=== PATIENT | female | born 1955 | race Caucasian/White ===

== ENCOUNTER 2020-10-26 10:19 | Day surgery (SDC) | payer MEDICARE, BC ==
[2020-10-25 12:44] LABS: ALBUMIN 3.6 G/DL (3.4-5.0); ANION GAP 6 (8-16); BLOOD UREA NITROGEN 5 MG/DL (7-18); BUN/CREATININE RATIO 7.2 (6.6-38.0); CALCIUM 8.5 MG/DL (8.5-10.1); CHLORIDE 98 MMOL/L (99-107); CREATININE 0.69 MG/DL (0.40-0.90); GLUCOSE 97 MG/DL (70-104); POTASSIUM 4.3 MMOL/L (3.5-5.1); SODIUM 138 MMOL/L (135-145); TOTAL CARBON DIOXIDE 33.9 MMOL/L (24-32); eGFR 85 ML/MIN
[2020-10-25 12:49] LABS: PARTIAL THROMBOPLASTIN TIME 24 SECONDS (22-32)
[2020-10-25 13:39] LABS: HEMATOCRIT 43.6 % (35.0-45.0); HEMOGLOBIN 14.7 g/dl (12.0-16.0); MEAN CORPUSCULAR HEMOGLOBIN 35.9 PG (27.0-31.0); MEAN CORPUSCULAR HGB CONC 33.8 g/dL (33.0-36.5); MEAN CORPUSCULAR VOLUME 106.2 FL (78-98); MEAN PLATELET VOLUME 7.1 FL (7.4-10.4); PLATELET COUNT 376 X10'3 (140-440); RED CELL DISTRIBUTION WIDTH 13.4 % (11.5-14.5); WHITE BLOOD COUNT 6.6 X10'3 (4.5-11.0)
[2020-10-25 13:43] LABS: PLATELET ESTIMATE NORMAL; TOTAL CELLS COUNTED 100
[~2020-10-26] VITALS: Ht 167.6 cm; Wt 70.1 kg
[2020-10-26] MEDS ORDERED: normal saline 1,000 ML IV SCH ×2 (10:40→14:55)
[2020-10-26] MEDS ORDERED: LORazepam 0.5 MG tablet PO PRN (10:40)
[2020-10-26] MEDS ORDERED: diphenhydrAMINE 25mg capsule PO PRN (10:40)
[2020-10-26] MEDS ORDERED: OMEG1CAP61 PO (11:30)
[2020-10-26] MEDS ORDERED: METO100T14 PO (11:30)
[2020-10-26] MEDS ORDERED: FOLI0.4T14 PO (11:30)
[2020-10-26] MEDS ORDERED: EZET10TA6 PO (11:30)
[2020-10-26] MEDS ORDERED: AMLO5TAB4 PO (11:30)
[2020-10-26] MEDS ORDERED: ATOR40TA PO (11:30)
[2020-10-26] MEDS ORDERED: OMEP40CA21 PO (11:30)
[2020-10-26] MEDS ORDERED: PSYL0.4C2 PO (11:30)
[2020-10-26] MEDS ORDERED: MULT-1085 PO (11:30)
[2020-10-26] MEDS ORDERED: ASPI81TA52 PO (11:30)
[2020-10-26] MEDS ORDERED: LOSA1TAB41 PO (11:30)
[2020-10-26] MEDS ORDERED: MONT10TA32 PO (11:30)
[2020-10-26] MEDS ORDERED: FLUT1BLS9 INH (11:30)
[2020-10-26] MEDS ORDERED: LIDOcaine/PRILOcaine 5gm cream TP ONE (11:35)
[2020-10-26] MEDS ORDERED: iohexol 350 MG/ML 50ML vial IV ONE (12:12)
[2020-10-26] MEDS ORDERED: midazolam 1 mg/ML 2ml injection ONE (12:12)
[2020-10-26] MEDS ORDERED: verapamil 2.5 mg/ml inj IV ONE (12:12)
[2020-10-26] MEDS ORDERED: fentaNYL/PF 50MCG/1 ML 2ML syringe ONE (12:12)
[2020-10-26] MEDS ORDERED: LIDOcaine 1% (10mg/ml)w/preservative injection 20ml MDV ONE (12:12)
[2020-10-26] MEDS ORDERED: heparin 1,000unit/ml 10ml vial 10 ML ONE (12:12)
[2020-10-26] MEDS ORDERED: iohexol 350MG/ML 100ml bottle IV ONE (12:12)
[2020-10-26] MEDS ORDERED: nitroGLYCERIN-Tridil 50MG/D5W 250 ML IV ONE (12:12)
[2020-10-26 14:17] LABS: ISTAT HGB ART 13.9 g/dl (12.0-16.0); ISTAT Hct ART 41 %PCV (35-48); ISTAT O2 SATURATION ARTERIAL 94 % (95-98); ISTAT SOURCE ART
[2020-10-26] MEDS ORDERED: hydrocortisone 1% OINTMENT 30gm tube TP SCH (14:54)
[2020-10-26] MEDS ORDERED: HYDROcodone/acetaminophen 5mg/325mg tablet PO PRN (14:55)
[2020-10-26] MEDS ORDERED: HYDROcodone/acetaminophen 10/325mg tab PO PRN (14:55)
[2020-10-26 14:59] LABS: ISTAT Hct MIX 41 %PCV (35-48); ISTAT O2 SATURATION MIX VENOUS 75 % (60-80); ISTAT SOURCE VEN
[2020-10-26 15:15] VITALS: BP 152/96
[2020-10-26 15:30] VITALS: BP 141/72
[2020-10-26 15:45] VITALS: BP 151/72
[2020-10-26 16:15] VITALS: BP 130/71
[2020-10-26 16:45] VITALS: BP 132/68
[2020-10-26 17:45] VITALS: BP 152/70
== END 2020-10-26 18:50 | disposition home or self-care (01) ==
LOC: SSTAY O 10:19
PROVIDERS: ATTEND Internal Medicine Cardiovascular Disease
DX: R94.39 Abnormal result of other cardiovascular function study (principal); I25.10 Atherosclerotic heart disease of native coronary artery without angina pectoris; I10 Essential (primary) hypertension; E78.5 Hyperlipidemia, unspecified; J44.9 Chronic obstructive pulmonary disease, unspecified; I34.1 Nonrheumatic mitral (valve) prolapse; G47.33 Obstructive sleep apnea (adult) (pediatric); G89.29 Other chronic pain; M19.90 Unspecified osteoarthritis, unspecified site; M54.30 Sciatica, unspecified side; M85.80 Other specified disorders of bone density and structure, unspecified site; K21.9 Gastro-esophageal reflux disease without esophagitis; I47.1 Supraventricular tachycardia; E66.3 Overweight; Z68.26 Body mass index [BMI] 26.0-26.9, adult; F17.210 Nicotine dependence, cigarettes, uncomplicated; Z79.899 Other long term (current) drug therapy; Z79.82 Long term (current) use of aspirin; Z90.710 Acquired absence of both cervix and uterus; Z98.890 Other specified postprocedural states; Z79.01 Long term (current) use of anticoagulants
CPT/HCPCS: 36415; 76937; 80048; 82803; 85014; 85025; 85610; 85730; 93005; 93460; 99152; 99153; C1769; C1894; J1644; J2001; J2250; J3010; J7030; Q0163; Q9967; 85007; A5120; A6258; C1751; J3490

== ENCOUNTER 2024-07-27 20:09 | Inpatient (IN) | payer MEDICARE, BC ==
[~2024-07-27] VITALS: Ht 165.1 cm; Wt 69.0 kg
[~2024-07-27 20:09] MED LIST: AMLO5TAB4 PO; ASPI81TA52 PO; ATOR40TA PO; EZET10TA6 PO; FLUT1BLS9 INH; FOLI0.4T14 PO; LOSA1TAB41 PO; METO100T14 PO; MONT-40 PO; MULT-1085 PO; OMEG1CAP61 PO; OMEP40CA21 PO; PSYL0.4C2 PO
[2024-07-27] MEDS ORDERED: iohexol 350MG/ML 100ml bottle IV ONE (20:23)
--- NOTE | 2024-07-27 20:34 | Physician Documentation ---
History of Present Illness ~ Chief Complaint: Stroke Alert Stated Complaint: STROKE SYMPTOMS Time Seen by MD: 20:32 Source: patient, family Mode of Arrival: POV Exam Limitations: no limitations HPI Chief Complaint: Visual changes, difficulty speaking Caveat: None Independent Historians: and daughter History of Present Illness: Patient is a 69-year-old woman with a last known well time of the proximally 7:00 p.m.. Family was watching we will fortunate on TV when family noticed that she was not talking and they had taken her outside and she was unable to understand what her daughter was saying to her and was having difficulty speaking. Patient also had visual changes and noticed that she could not see the words or had problems seen her entire visual field. Patient has had similar symptoms secondary to migraines that usually resolves when she takes a medication for her migraines. Patient has had a headache that has been on and off for two weeks. Family states that her blood pressure has been running very high. Review of systems: All systems were reviewed and are negative except for what is indicated in the history of present illness. Past Medical History: Migraines HTN, HLD Past Surgical History: Noncontributory Social History: , tobacco use, denies drug use Medications: Reviewed as documented Nursing Notes Allergies: Reviewed as documented in Nursing Notes Medication Reconciliation Allergies: Coded Allergies: No Known Allergies (Unverified , 10/26/20) Scheduled Aspirin (Aspirin EC), 1 TAB PO DAILY, (Reported) Atorvastatin Calcium* (Lipitor*), 1 TAB PO DAILY, (Reported) Ezetimibe (Zetia), 1 TAB PO DAILY, (Reported) Fluticasone Propion/Salmeterol (Wixela 100-50 Inhub), 1 PUFF INH BID, (Reported) Folic Acid (FOLIC ACID tablet), 1 MG PO DAILY, (Reported) Metoprolol Tartrate (Metoprolol Tartrate), 1 TAB PO Q12H, (Reported) Montelukast Sodium (Montelukast Sodium), 1 TAB PO DAILY, (Reported) Multivitamin (Multi Vitamin Daily), 1 TAB PO DAILY, (Reported) [place]-3 Acid Ethyl Esters (Lovaza), 1 CAP PO DAILY, (Reported) Omeprazole (Prilosec), 1 CAP PO DAILY, (Reported) Psyllium Husk (Metamucil), 2 CAP PO DAILY, (Reported) Discontinued Medications Amlodipine Besylate (Norvasc), 1 TAB PO DAILY, (Reported) Discontinued Reason: patient no longer taking Losartan/Hydrochlorothiazide (Losartan-Hctz 100-12.5 Mg Tab), 1 TAB PO DAILY, (Reported) Discontinued Reason: completed med therapy Review of Systems All Other Systems at this time: Reviewed and Negative ROS Patient denies any other acute symptoms other than above. All other systems are negative Physical Exam Vital Signs: Temperature: 97.4, Source: Temporal, Heart Rate: 60, Respiratory Rate: 18, BP: 210/91, Pulse Oximetry: 100, Weight: 69.000 Oxygen Flow Rate: 0 Pulse Oximetry Reflects: adequate oxygenation General Appearance General Appearance: No distress HEENT: Normal OP, moist oral mucosa, PERRL, EOMI Neck: supple, normal ROM, trachea midline Pulmonary: No respiratory distress, CTA, BS equal Cardiac: RRR, no murmur, rub or gallop, GI: nondistended, soft, nontender, normal bowel sounds, no guarding, no rebound Extremities: normal ROM, no swelling, non-tender Skin: intact, dry, warm, no rashes Neuro: AAOx3, speech is clear, no focal motor weakness, cranial nerves 2-12 grossly intact, [id number] intact bilaterally, no pronator drift, equal medical language specialist, patient able to lift each leg off the stretcher against gravity. No slurred speech. Patient is able to name objects. No evidence of an expressive or receptive aphasia. No visual field deficits Psych: normal affect, good eye contact, no apparent hallucination, normal speech Progress Results/Orders Results/Orders Orders - BASILIA HERCULES MD Monitor (07/27/24 20:22) 2 Large Bore Ivs (07/27/24 20:22) Chest,Single View (07/27/24 20:54) Accucheck (07/27/24 20:22) Ct Stroke Alert (07/27/24 20:30) Cta Neck/Head (07/27/24 20:30) [place] Prov.Neuro Consult (07/27/24 20:36) Page Hospitalist (07/27/24 22:04) Fill Out Med Reconciliation (07/27/24 22:04) Completed Orders - BASILIA HERCULES MD Cbc/Diff (07/27/24 20:22) Electrocardiogram (07/27/24 20:22) Chest,Single View (07/27/24 20:54) Ct Stroke Alert (07/27/24 20:30) PTT (07/27/24 20:22) Pt Inr (07/27/24 20:22) Cta Neck/Head (07/27/24 20:30) CMP (07/27/24 20:28) Hgb A1c (07/27/24 20:28) Medications Received in ER Medications (Trade) Dose Ordered Sig/Cathy Route PRN Reason Start Time Stop Time Status Last Admin Dose Admin Sodium Chloride 1,000 ml @ 100 mls/hr Q10H IV 07/27/24 22:15 07/27/24 23:36 100 MLS/HR (aspirin 325mg tablet) 1 tab ONCE ONCE PO 07/27/24 22:15 07/27/24 22:31 DC 07/27/24 22:52 1 TAB Vital Signs 07/27/24 07/27/24 07/27/24 07/27/24 20:17 20:26 21:00 21:35 Temp 97.4 Pulse 89 60 73 73 Resp 16 18 17 17 B/P (MAP) 210/91 166/64 191/84 Pulse Ox 98 100 97 97 O2 Flow Rate 0 07/27/24 07/27/24 07/27/24 21:44 22:02 22:03 Pulse 73 72 Resp 16 21 B/P (MAP) 127/53 127/53 (77) Pulse Ox 94 97 100 O2 Delivery Nasal Cannula* O2 Flow Rate 3 FiO2 32 Laboratory Tests Test 07/27/24 20:16 07/27/24 20:28 07/27/24 21:26 07/27/24 21:28 Glucometer 133 H White Blood Count 7.4 Red Blood Count 5.36 Hemoglobin 15.6 Hematocrit 47.9 H Mean Corpuscular Volume 89.4 Mean Corpuscular Hemoglobin 29.2 Mean Corpuscular Hemoglobin Concent 32.6 L Red Cell Distribution Width 20.5 H Platelet Count 298 Mean Platelet Volume 7.2 L Neutrophils (%) (Auto) 55.9 Lymphocytes (%) (Auto) 30.1 Monocytes (%) (Auto) 10.5 Eosinophils (%) (Auto) 3.0 Basophils (%) (Auto) 0.5 Neutrophils # (Auto) 4.1 Lymphocytes # (Auto) 2.2 Monocytes # (Auto) 0.8 Eosinophils # (Auto) 0.2 Basophils # (Auto) 0.0 CBC Comment Platelet Estimate Normal Red Blood Cell Morphology Perf Basophilic Stippling Anisocytosis Few Prothrombin Time 10.9 INR International Normalized Ratio 1.1 Activated Partial Thromboplast Time 26 Coagulation Comments Sodium Level 133 L Potassium Level 4.9 Chloride Level 95 L Carbon Dioxide Level 31.7 Anion Gap 6 L Blood Urea Nitrogen 14 Creatinine 0.73 Estimated GFR/1.73 m2 79 BUN/Creatinine Ratio 19.2 Glucose Level 137 H Hemoglobin A1c 6.0 Lactic Acid Level 0.9 Calcium Level 9.2 Total Bilirubin 0.7 Aspartate Amino Transf (AST/SGOT) 50 H Alanine Aminotransferase (ALT/SGPT) 82 H Alkaline Phosphatase 101 Total Protein 7.7 Albumin 4.0 Globulin 3.7 Albumin/Globulin Ratio 1.1 Chemistry Comments Urine Specimen Description Cln catch midstream Urine Color Yellow Urine Clarity Clear Urine pH 6.0 Urine Specific [place] <=1.005 Urine Protein Negative Urine Glucose (UA) Negative Urine Ketones Negative Urine Occult Blood Negative Urine Nitrite Negative Urine Bilirubin Negative Urine Urobilinogen 0.2 Urine Leukocyte Esterase Trace H Urine RBC 0-2 Urine WBC 5-10 H Urine Squamous Epithelial Cells Few Urine Transitional Epithelial Cells Few Urine Bacteria 1+ Urine Hyaline Casts 0-3 Urine Culture Indicated Indicated Volume Urine Centrifuged 10 ml Urine Comment Urine Opiates Screen Negative Urine Methadone Screen Negative Urine Fentanyl Screen Negative Urine Barbiturates Screen Negative Urine Phencyclidine Screen Negative Urine Amphetamines Screen Negative Urine Benzodiazepines Screen Negative Urine Cocaine Screen Negative Urine Cannabinoids Screen Negative Drug Screen Comment Medical Decision Making Findings Differential diagnosis includes but is not limited to: Migraine, ischemic CVA, hemorrhagic CVA, uncontrolled hypertension, hypoglycemia, electrolyte abnormalities EKG independent interpretation: Performed at 9:11 p.m.. Normal sinus rhythm, heart rate 77, normal axis LVH Chest x-ray, single view, indication: Stroke alert Independent interpretation: Hyperinflation of lungs, flat hemidiaphragms consistent with COPD, lungs are clear, normal mediastinum, normal cardiac silhouette. No acute cardiopulmonary process. CTA of the head without IV contrast, indication: Stroke alert Impression: 1. No acute territorial infarct, intracranial hemorrhage, or mass effect. 2. Age-related involutional changes. Chronic microvascular changes. 3. If clinical symptoms persist, MRI is suggested in further evaluation. CTA of the head and neck, indication: Stroke alert Impression: 1. 7 mm basilar tip aneurysm. 2. 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 3. Emphysema. Laboratory data independent interpretation: CBC: Unremarkable CMP: Unremarkable, AST is mildly elevated at 50, ALT mildly elevated at 82 Coags: Normal Emergency department course/medical decision-making: Patient is a 69-year-old woman who presents with symptoms concerning for acute stroke. She had a receptive and expressive aphasia and what sounds like visual field deficits that have since resolved. Patient is currently asymptomatic. Patient does not meet criteria for thrombolytics. The other possibility is a migraine. Patient is currently neurologically intact. Test results and treatment plan reviewed with the patient. There was no evidence of hemorrhage. 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 However this is intact and there was no evidence of a subarachnoid hemorrhage. Patient will require admission for further stroke workup. Consultation/communications: Case discussed with the tele neurologist. He will evaluate the patient. 9:20 p.m.: Case discussed with the radiologist. Patient has a small aneurysm at the tip of the basilar artery with no evidence of bleeding or rupture. CT of the head is negative for any hemorrhage. CTA shows moderate to severe stenosis of the right internal carotid artery. Departure Time of Disposition: 22:04 Disposition: 09 ADMITTED INPATIENT Admitted to Inpatient Unit: to hospitalist Admission Level of Care: Neuro with Tele Impression: Primary Impression: TIA (transient ischemic attack) Education Educated: Patient, Family Educated regarding: diagnosis, treatment Signature Scribe Signature: No scribe Attestation: No scribe BASILIA HERCULES MD Jul 27, 2024 20:34
[2024-07-27 20:35] LABS: BASOPHILS % (AUTO) 0.5 % (0-1); EOSINOPHILS # (AUTO) 0.2 X10'3 (0-0.9); HEMATOCRIT 47.9 % (35.0-45.0); HEMOGLOBIN 15.6 g/dl (12.0-16.0); LYMPHOCYTES # (AUTO) 2.2 X10'3 (1.1-4.8); LYMPHOCYTES % (AUTO) 30.1 % (21-51); MEAN CORPUSCULAR HEMOGLOBIN 29.2 PG (27.0-31.0); MEAN CORPUSCULAR HGB CONC 32.6 g/dL (33.0-36.5); MEAN CORPUSCULAR VOLUME 89.4 FL (78-98); MEAN PLATELET VOLUME 7.2 FL (7.4-10.4); MONOCYTES # (AUTO) 0.8 X10'3 (0-0.9); MONOCYTES % (AUTO) 10.5 % (2-12); NEUTROPHILS # (AUTO) 4.1 X10'3 (1.8-7.7); NEUTROPHILS % (AUTO) 55.9 % (42-75); PLATELET COUNT 298 X10'3 (140-440); RED BLOOD COUNT 5.36 X10'6 (4.20-5.60); RED CELL DISTRIBUTION WIDTH 20.5 % (11.5-14.5); WHITE BLOOD COUNT 7.4 X10'3 (4.5-11.0)
[2024-07-27 20:47] LABS: APTT 26 SECONDS (22-32); INR 1.1 INR; PROTHROMBIN TIME 10.9 SECONDS (9.0-12.0)
[2024-07-27 21:08] LABS: PLATELET ESTIMATE NORMAL
[2024-07-27 21:09] LABS: ANISOCYTOSIS FEW
--- NOTE | 2024-07-27 21:10 | RADIOLOGY REPORT ---
CHEST RADIOGRAPH REASON FOR EXAM: Stroke Alert COMPARISON: None TECHNIQUE: One view of the chest is provided FINDINGS: The cardiomediastinal silhouette is within normal limits for technique. There is aortic ath erosclerosis. The lungs are hyperinflated, suggestive of emphysema. There is no focal airspace diseas e. There is no significant pleural effusion. No acute bony abnormality is identified. IMPRESSION: No radiographic evidence of acute cardiopulmonary process. Hyperinflated lungs, suggestive of emphyse ma.
--- NOTE | 2024-07-27 21:13 | ELECTROCARDIOGRAPH REPORT ---
[facility] Test Date: 2024-07-27 Test Time: 21:11:09 Pat Name: MULUGETA MORENO Department: [facility]-ER Patient ID: [id number] Room: Gender: F Project Account Manager: : 1955 Requested By: BASILIA HERCULES Order Number: [id number] Reading MD: Measurements Intervals [place] Rate: 77 P: 89 [place]: 191 QRS: 58 QRSD: 75 T: 71 QT: 377 QTc: 427 Interpretive Statements Sinus rhythm Atrial premature complex Probable left atrial enlargement Left ventricular hypertrophy Please click the below link to view image of tracing.
[2024-07-27 21:20] LABS: ALANINE AMINOTRANSFERASE 82 U/L (12-78); ALKALINE PHOSPHATASE 101 IU/L (46-116); ANION GAP 6 (8-16); ASPARTATE AMINO TRANSFERASE 50 U/L (10-37); BILIRUBIN,TOTAL 0.7 MG/DL (0.1-1.0); BLOOD UREA NITROGEN 14 MG/DL (7-18); BUN/CREATININE RATIO 19.2 (10.0-20.0); CALCIUM 9.2 MG/DL (8.5-10.1); CHLORIDE 95 MMOL/L (99-107); CREATININE 0.73 MG/DL (0.40-0.90); GLUCOSE 137 MG/DL (70-104); SODIUM 133 MMOL/L (135-145); TOTAL CARBON DIOXIDE 31.7 MMOL/L (24-32); eCRCL 65 ML/MIN; eGFR 79 ML/MIN
--- NOTE | 2024-07-27 21:20 | [facility] CONSULT REPORT ---
[facility] Procedure Note [facility] Procedure Note Consult [facility] Note # Demographics Consult Type: Acute Stroke Level 1 (0-4.5 hrs) Patient Location: Emergency Room First Name: JOSH Last Name: MULUGETA Date of : 1955 Age: 69 Gender: Female Facility: Time of Initial Page (): 07/27/2024 20:55 Time of Return Call (): 07/27/2024 20:56 # HPI History: [id number] Patient is coming to the ER for loss of vision. She was at home watching TV with her family and noticed that she is not able to see half of her vision field and was having some speaking difficulty. Her symptoms have resolved. She's also having a headache for the past few weeks. H/O smoking, HTN Duration: - resolved # Scores Time of exam and NIHSS (): 07/27/2024 21:01 Level of Consciousness 1a: [0] = Alert; keenly responsive LOC Questions 1b: [0] = Answers both questions correctly LOC Commands 1c: [0] = Performs both tasks correctly Best Gaze 2: [0] = Normal Visual 3: [0] = No visual loss Facial Palsy 4: [0] = Normal symmetrical movements Motor Arm Left 5a: [0] = No drift Motor Arm Right 5b: [0] = No drift Motor Leg Left 6a: [0] = No drift Motor Leg Right 6b: [0] = No drift Limb Ataxia 7: [0] = Absent Sensory 8: [0] = Normal Best Language 9: [0] = No aphasia Dysarthria 10: [0] = Normal Extinction and Inattention 11: [0] = No abnormality NIHSS Total: 0 ABCD2 Score for TIA: [1] = Age >/= 60 years: Yes [1] = BP >/= 140/90: Yes [1] = Clinical features of the TIA: speech disturbances without weakness [2] = Duration of symptoms: >/= 60 minutes [0] = History of diabetes: No ABCD2 Total: 5 # Assessment Impression: - Transient Ischemic Attack - Migraine (Complex) Differential include TIA, Other differential include complex migraine, but based on age and other risk factors, TIA seems more likely. # Plan Thrombolytic/Intervention: NOT IV Thrombolysis or IA Intervention candidate Thrombolytic Exclusion (< 3 hour window): - NIHSS = 0 Intraarterial Exclusion: - clinical exam not consistent with presence of large vessel occlusion (LVO), can reconsider if LVO found on vascular imaging Modified [place] Scale (mRS) pre-stroke: [0] = No symptoms at all. Labs: - hemoglobin A1c - lipid panel - comprehensive metabolic panel - CBC Imaging: (urgency: routine): - MRI Brain without contrast Diagnostic Test: - echo without bubble study Medication: - start statin with goal of LDL < 70 - aspirin 81 mg PLUS clopidogrel (Plavix) 75 mg for 21 days, then monotherapy therafter DVT Prophylaxis: - SCD Other: - If patient has any neurological deterioration please call me back immediately - LDL < 70 - permissive hypertension - telemetry monitoring - will need event monitor or loop recorder as outpatient if atrial fibrillation not found as inpatient - neurology referral as outpatient - I have discussed my recommendations with the referring provider # Logistics Attestation of consult completion: The patient is located at: . Facility staff participated in the visit. I performed this telemedicine visit from my offsite office utilizing interactive 2 way audio and visual telecommunication technology. Total time spent in telemedicine encounter: I spent 20 minutes reviewing clinical data and/or imaging, obtaining history, examining the patient, communicating with the onsite care team, and in preparation of this report. # Demographics First Name: JOSH Last Name: MULUGETA Facility: Neuro Consult Order placed for: Yes SHANNAN LEES MD Jul 27, 2024 21:20
[2024-07-27 21:23] LABS: ALBUMIN/GLOBULIN RATIO 1.1 (1.1-1.5); POTASSIUM 4.9 MMOL/L (3.5-5.1); TOTAL PROTEIN 7.7 G/DL (6.4-8.2)
--- NOTE | 2024-07-27 21:36 | RADIOLOGY REPORT ---
CT HEAD WITHOUT CONTRAST: HISTORY: Stroke Alert COMPARISON: None CONTRAST: Study was performed without contrast. TECHNIQUE: Axial images from the skull base to the vertex with coronal and sagittal reformatted image s. Dose reduction technique was used on this scan by utilizing automated exposure control, adjustment of the mA and/or kV according to the patient size. DICOM format image data available to non-affili ed external healthcare facilities or entities on a secure, media free, reciprocally searchable basis with patient authorization for at least a 12 month period after the study. FINDINGS: No acute territorial infarct, intracranial hemorrhage, or mass effect. Periventricular white matter hypoattenuation suggestive of underlying chronic small vessel disease. There are mild global involut ional changes with compensatory prominence of the ventricles and sulci. Basal cisterns grossly unrema rkable. Cerebellum and posterior fossa structures without focal abnormality. The orbits are unremarkable. The paranasal sinuses are clear. There is moderate fluid within the rig ht mastoid air cells. The osseous structures are unremarkable. IMPRESSION: 1. No acute territorial infarct, intracranial hemorrhage, or mass effect. 2. Age-related involutional changes. Chronic microvascular changes. 3. If clinical symptoms persist, MRI is suggested in further evaluation. Findings discussed with Dr. Breen in the ED on 07/28/2024 at 9:20 p.m.. Critical findings, stroke alert Critical Result: Stroke Alert Findings discussed with BASILIA BREEN at 07/28/2024 12:32 AM, and acknowledged receipt and understan ding of the findings.
--- NOTE | 2024-07-27 21:49 | RADIOLOGY REPORT ---
CTA HEAD AND NECK: HISTORY: stroke alert COMPARISON: None CONTRAST: Type of IV contrast: Omnipaque 350 Contrast injected: 100 ml Contrast wasted: 0 ml TECHNIQUE: Contiguous CT axial imaging of the head and neck performed. Coronal, sagittal, and 3-D ref ormatted images obtained. Dose reduction technique was used on this scan by utilizing automated expos ure control, adjustment of the mA and/or kV according to the patient size. DICOM format image data av ailable to non-affiliated external healthcare facilities or entities on a secure, media free, [employer] searchable basis with patient authorization for at least a 12 month period after the study. All measurements regarding percentage stenosis are made using NASCET criteria and guidelines. EXTRAVASCULAR FINDINGS: Please note that the phase of contrast was optimized for evaluation of vasculature. This may limit as sessment of the soft tissues of the neck. No enlarged or abnormal appearing lymph nodes. Airway appea rs patent. There are emphysematous changes at the lung apices. There is an 11 mm calcification within the right lobe of the thyroid gland. NECK VASCULATURE FINDINGS: Arch: Standard three vessel arch. Subclavian: Subclavian arteries patent bilaterally. Right carotid: Patent from the origin to the skull base. There is calcified plaque of the right carotid bulb. Prominent atherosclerotic calcification of the origin of the right proximal internal c arotid artery contributes to approximately 80% stenosis. Left carotid: Patent from the origin to the skull base. There is atherosclerotic calcification of the carotid bulb. Mild calcification at the origin of the left proximal internal carotid artery w ithout significant stenosis. Vertebral arteries: Patent bilaterally to the vertebrobasilar confluence. BRAIN VASCULATURE FINDINGS: Intracranial ICAs: Patent from the skull base to the carotid terminus MCAs: Patent bilaterally. ACAs: Patent bilaterally. P-Comms: Visualized bilaterally Basilar artery: There is a 7 mm aneurysm at the basilar tip. security control assessor: Patent bilaterally. SCAs: Patent bilaterally. AICAs: Visualized bilaterally. PICAs: Visualized bilaterally. IMPRESSION: 1. 7 mm basilar tip aneurysm. 2. 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 3. Emphysema. critical findings, stroke alert, aneurysm Critical Result: Stroke Alert , basilar tip aneurysm Findings discussed with BASILIA HERCULES at 07/28/2024 9:20PM, and acknowledged receipt and understandi ng of the findings.
[2024-07-27] MEDS ORDERED: potassium Cl 40MEQ/1/2NS 520ml 520 ML IV PRN (22:15)
[2024-07-27] MEDS ORDERED: mag hydrox/Alum hydrox/simeth 30ml oral suspension PO PRN (22:15)
[2024-07-27] MEDS ORDERED: magnesium sulf-water 2g/50mL 50 ML IV PRN (22:15)
[2024-07-27] MEDS ORDERED: magnesium hydroxide 30ml (MOM) UD suspension PO PRN (22:15)
[2024-07-27] MEDS ORDERED: potassium Cl 20 mEq SR tablet PO PRN ×2 (22:15)
[2024-07-27] MEDS ORDERED: acetaminophen 325mg tablet PO PRN (22:15)
[2024-07-27] MEDS ORDERED: magnesium sulf-water 4G/100mL 100 ML IV PRN (22:15)
[2024-07-27] MEDS ORDERED: ondansetron/PF 4mg/2ml inj IV PRN (22:15)
[2024-07-27 22:32] LABS: BILIRUBIN,URINE NEGATIVE (Neg); CLARITY,URINE CLEAR (Clear); COLOR,URINE YELLOW (Yellow); GLUCOSE, URINE NEGATIVE (Neg); KETONES,URINE NEGATIVE (Neg); LEUKOCYTE ESTERASE ,URINE TRACE (Neg); NITRITES, URINE NEGATIVE (Neg); OCCULT BLOOD,URINE NEGATIVE (Neg); PROTEIN,URINE NEGATIVE (Neg); UA COLLECTION TYPE CLN CATCH MIDSTREAM; UROBILINOGEN,URINE 0.2 E.U/dL (0.2-1.0)
[2024-07-27 22:39] LABS: BACTERIA,URINE 1+ /HPF (Neg); RBC,URINE 0-2 /HPF (0-2); SQUAMOUS EPITHELIAL CELL,UR FEW /LPF (FEW)
[2024-07-27 22:40] LABS: HYALINE CASTS 0-3 /LPF (NEGATIVE); TRANSITIONAL EPI CELLS,URINE FEW /HPF
[2024-07-27 22:46] LABS: URINE AMPHETAMINE SCREEN NEGATIVE (Neg); URINE BARBITUATE SCREEN NEGATIVE (Neg); URINE BENZODIAZEPINES SCREEN NEGATIVE (Neg); URINE CANNABINOID SCREEN NEGATIVE (Neg); URINE COCAINE SCREEN NEGATIVE (Neg); URINE METHADONE SCREEN NEGATIVE (Neg); URINE OPIATE SCREEN NEGATIVE (Neg); URINE PHENCYCLIDINE SCREEN NEGATIVE (Neg)
[2024-07-27] MEDS: PERFLUTREN PROTEIN-A MICROSPHR (Optison) 0.22 MG/ML 3ML VIAL IV ONE (22:50)
[2024-07-27] MEDS: aspirin 325mg tablet PO ONE (22:52)
[2024-07-27] MEDS: normal saline 1000ml 1,000 ML IV SCH (23:36)
--- NOTE | 2024-07-27 23:43 | HISTORY AND PHYSICAL-Residence ---
History & Physical Providers to CC Resident Creating Document: JUAQUIN LIMA, RES CC: ALDO WORKMAN MD ~ History of Present Illness Reason for Admit\Complaint: Loss of vision on one half, numbness and confusion History of Present Illness A 69-year-old female with a past medical history of HTN, HLD, mitral valve regurgitation presented to the ED after an episode of unable to see partially, numbness in her upper extremities and confusion at about 7:00 a.m. this morning. Patient usually has migraine with aura but this time she had different kind of a sensation with a rainbow kind of aura and loss of vision on 1/2 side unable to say if left to right. Patient also had difficulty understanding the questions that her daughter was asking, unable to answer complete sentences associated with numbness in her bilateral upper extremities. Patient has had these symptoms for about 1-1/2 hour. Patient also describes frontal headache with a severity of 7/10 that went away with coffee. Patient denies weakness of her upper or lower extremities or nausea or vomitings. Allergies: Coded Allergies: No Known Allergies (Unverified , 10/26/20) Home Medications Home Medications Active Reported Lovaza (Livingston-3 Acid Ethyl Esters) 1 Gm Capsule 1 Cap PO DAILY 30 Days Aspirin EC (Aspirin) 81 Mg Tablet.dr 1 Tab PO DAILY 30 Days Wixela 100-50 Inhub (Fluticasone Propion/Salmeterol) 1 Each Blst.w.dev 1 Puff INH BID Norvasc (Amlodipine Besylate) 5 Mg Tablet 1 Tab PO DAILY 30 Days Montelukast Sodium 10 Mg Tablet 1 Tab PO DAILY 30 Days Losartan-Hctz 100-12.5 Mg Tab (Losartan/Hydrochlorothiazide) 1 Each Tablet 1 Tab PO DAILY 30 Days Metamucil (Psyllium Husk) 0.4 Gm Capsule 2 Cap PO DAILY 30 Days Multi Vitamin Daily (Multivitamin) 1 Each Tablet 1 Tab PO DAILY 30 Days Prilosec (Omeprazole) 40 Mg Capsule 1 Cap PO DAILY 30 Days Metoprolol Tartrate 100 Mg Tablet 1 Tab PO Q12H 30 Days FOLIC ACID tablet (Folic Acid) 0.4 Mg Tablet 1 Mg PO DAILY Zetia (Ezetimibe) 10 Mg Tablet 1 Tab PO DAILY 30 Days Lipitor* (Atorvastatin Calcium) 40 Mg Tablet 1 Tab PO DAILY 30 Days Past Medical History Past Medical History HTN HLD Mitral valve regurgitation Past Surgical History Surgical History Comment Left breast surgery Past Social History Social History Comment Lives at home with Smokes half to one pack of cigarettes per day for the last 40 years Consumes wine 1-2 glasses every day Does not consume marijuana or illicit drugs Sees Dr. Churchill for cardiology and [facility] for primary care ROS ROS All other systems reviewed in full and negative except for the pertinent positives mentioned in the HPI Exam Vitals: Vital Signs Date Time Temp Pulse Resp B/P (MAP) Pulse Ox O2 Delivery O2 Flow Rate FiO2 07/27/24 23:03 73 16 158/71 97 07/27/24 21:44 Nasal Cannula* 3 32 07/27/24 20:17 97.4 General: General: Alert, awake, oriented, not in acute distress, restless HEENT: PERRLA, EOMI, no icterus, pallor, lymphadenopathy, carotid bruit Respiratory system: Bilateral vesicular breath sounds heard, no adventitious breath sounds CVS: S1-S2 heard, grade 3/6 holosystolic murmur present in the mitral area GI: Soft, nontender, no organomegaly, no guarding/rigidity, bowel sounds present Neuro: No sensory deficits, coordination intact, gait could not be examined, power of bilateral upper and lower extremities: 4/5, no deviation of angle of mouth, cranial nerves intact Extremities: No edema cyanosis clubbing/deformities Skin: Warm and dry Diagnostic Data Last Recorded Lab Results: 07/27/24202707/27/242027 Diagnostic Data: Laboratory Tests Test 07/27/24 20:28 Prothrombin Time 10.9 SECONDS (9.0-12.0) INR International Normalized Ratio 1.1 INR Activated Partial Thromboplast Time 26 SECONDS (22-32) Coagulation Comments Advance Care Planning Advanced Care plannin - 30 Minutes (I spent 20 minutes discussing various resuscitative measures and patient decided to be full code) Additional Plan Assessment: A 69-year-old female with past medical history of HTN, HLD presented to the ED with symptoms of numbness in bilateral upper extremities, confusion, and difficulty in vision 1/2 side. Patient is admitted for the evaluation management of TIA. Plan: TIA CVA, rule out NIHSS: 0 Underlying migraine with aura CT head: No acute territorial infarct, intracranial hemorrhage, or mass effect. CTA head and neck: 7 mm basilar tip aneurysm. 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 A1c: 6, U tox: Negative Follow up with MRI brain, echo, lipid panel Tele neurology recommended: Permissive hypertension for 48 hours with SBP < 180/< 120, aspirin and Plavix for 21 days(End date: 08/17/2024) NPO until swallow eval PT/OT eval Neuro checks Continue to monitor telemetry Asymptomatic bacteriuria Urinalysis positive for leukocyte esterase Follow up with urine culture More started on antibiotics as the patient is not symptomatic HTN Allow for permissive hypertension for 48 hours HLD Started on atorvastatin 40 mg once day Follow up with lipid panel COPD not in acute exacerbation DuoNeb p.r.n. q.4h Patient takes aspirin at home, does not know why she takes it. We are continuing it. Please get records from Dr. Churchill's office about cardiology history. Patient also takes metoprolol 100 mg and says that is for high blood pressure please re-evaluate in a.m.. This has not been continued. Code status: Full code Diet: NPO until swallow eval Anticoagulation: Aspirin, Plavix Disposition: Admit to neuro, follow up with MRI brain, echo, get Cardiology records from Dr. Churchill's office Juaquin Lima MD Internal Medicine, PGY 1 Date of Service: Jul 27, 2024 Billing Provider: ALDO WORKMAN MD, SIVA, RES Jul 27, 2024 23:43
[2024-07-27] MEDS ORDERED: ipratropium/albuterol 3ml nebule NEB PRN (23:50)
[2024-07-27] MEDS ORDERED: labetalol 20mg/4ml (5mg/ml) syringe IV PRN (23:50)
[2024-07-28] VITALS (13 sets, daily range): BP systolic 139–192; BP diastolic 73–93; PULSE 67–88; RESP 14–20; TEMP 96.4–98.3; O2SAT 91–99
[2024-07-28 05:11] LABS: BASOPHILS # (AUTO) 0.2 X10'3 (0-0.2); BASOPHILS % (AUTO) 2.9 % (0-1); EOSINOPHILS # (AUTO) 0.2 X10'3 (0-0.9); EOSINOPHILS % (AUTO) 2.9 % (0-6); HEMATOCRIT 42.8 % (35.0-45.0); LYMPHOCYTES # (AUTO) 1.7 X10'3 (1.1-4.8); LYMPHOCYTES % (AUTO) 26.9 % (21-51); MEAN CORPUSCULAR HGB CONC 32.8 g/dL (33.0-36.5); MEAN CORPUSCULAR VOLUME 88.6 FL (78-98); MEAN PLATELET VOLUME 7.3 FL (7.4-10.4); MONOCYTES # (AUTO) 0.6 X10'3 (0-0.9); MONOCYTES % (AUTO) 9.4 % (2-12); NEUTROPHILS # (AUTO) 3.6 X10'3 (1.8-7.7); NEUTROPHILS % (AUTO) 57.9 % (42-75); PLATELET COUNT 266 X10'3 (140-440); RED BLOOD COUNT 4.83 X10'6 (4.20-5.60); RED CELL DISTRIBUTION WIDTH 20.5 % (11.5-14.5); WHITE BLOOD COUNT 6.3 X10'3 (4.5-11.0)
[2024-07-28 05:35] LABS: ALBUMIN 3.3 G/DL (3.4-5.0); ANION GAP 2 (8-16); BLOOD UREA NITROGEN 9 MG/DL (7-18); BUN/CREATININE RATIO 17.6 (10.0-20.0); CALCIUM 8.9 MG/DL (8.5-10.1); CHLORIDE 101 MMOL/L (99-107); CHOL/HDL RATIO 1.9 (0.00-4.99); CHOLESTEROL 154 MG/DL (0-200); CREATININE 0.51 MG/DL (0.40-0.90); GLUCOSE 105 MG/DL (70-104); HDL CHOLESTEROL 83 MG/DL (35-60); LDL CHOLESTEROL 50 MG/DL (50-100); MAGNESIUM 1.4 MG/DL (1.5-2.4); POTASSIUM 4.3 MMOL/L (3.5-5.1); SODIUM 139 MMOL/L (135-145); TOTAL CARBON DIOXIDE 35.6 MMOL/L (24-32); TRIGLYCERIDES 21 MG/DL (20-135); eCRCL 92 ML/MIN; eGFR > 90 ML/MIN
[2024-07-28] MEDS: K and/or MAG REPLACEMENT MC SCH (08:00)
[2024-07-28] MEDS ORDERED: aspirin 81mg, enteric-coated 1 TAB TABLET.DR PO SCH ×2 (08:00)
[2024-07-28] MEDS: docusate sod 100mg capsule PO SCH (08:00)
[2024-07-28] MEDS: clopidogrel 75mg tablet PO SCH (08:56)
[2024-07-28] MEDS: ezetimibe 10mg tablet PO SCH (08:56)
[2024-07-28] MEDS: OMEGA-3/DHA/EPA/FISH OIL 1 EACH CAPSULE.DR PO SCH (08:56)
[2024-07-28] MEDS: aspirin 81mg, enteric-coated 1 TAB TABLET.DR PO SCH (08:57)
[2024-07-28] MEDS: folic acid 0.4mg tablet PO SCH (08:57)
[2024-07-28] MEDS: atorvastatin 20mg tablet PO SCH (08:58)
[2024-07-28] MEDS ORDERED: LOSA1TAB41 PO (10:04)
[2024-07-28] MEDS: LORazepam 0.5 MG tablet PO PRN (14:19)
[2024-07-28] MEDS: morphine 2 MG/ML inj. syringe IV PRN (15:15)
--- NOTE | 2024-07-28 16:12 | RADIOLOGY REPORT ---
PROCEDURE: MR MRI HEAD INDICATION: TIA EXAM DATE: 07/28/2024 03:31 PM COMPARISON: None TECHNIQUE: MRI of the brain without intravenous contrast. FINDINGS: Diffusion weighted images of the brain demonstrate no evidence of acute infarction. There is no evidence of acute intracranial hemorrhage, extra-axial collection, mass effect, midline s hift, herniation or hydrocephalus. The ventricles, sulci and cisterns appear age appropriate. Moderate changes of chronic microvascular ischemic disease. There are no signal abnormalities on the susceptibility weighted sequences. The major vascular flow voids are present. Right mastoiditis. The surrounding soft tissues and osseous structures are unremarkable. IMPRESSION: 1. No evidence of acute infarction, intracranial hemorrhage, mass effect or hydrocephalus. Moderate c hanges of chronic microvascular ischemic disease. Right mastoiditis. HS:Y
[2024-07-28] MEDS: metoprolol tartrate 50mg tablet PO SCH (19:30)
[2024-07-28] MEDS: losartan 50mg tablet PO SCH (19:31)
--- NOTE | 2024-07-28 19:57 | PROGRESS NOTE ---
Daily Progress Note Providers to CC ~ no new complaint today, resting comfortably in the bed Central Line/PICC still needed: No Boothe-Non Protocol Boothe Indications Met/Not Met: F/C Indications Not Met Antibiotic Timeout Antibiotic Ordered?: Yes MRSA Education MRSA Education Provided to pt: Yes Subjective As above Objective Vital Signs Date Time Temp Pulse Resp B/P (MAP) Pulse Ox O2 Delivery O2 Flow Rate FiO2 07/28/24 19:31 86 07/28/24 16:15 16 07/28/24 16:07 98.1 140/80 (100) 93 Room Air 07/28/24 10:02 3 32 Vital signs, stable ,afebrile. Pulse Oximetry reflects adequate oxygenation on 3 L oxygen nasal cannula General: well developed, well nourished. Awake , alert, and oriented x4, resting comfortably in the bed, in no acute distress . Skin: Warm, dry, no pallor, no rash or petechiae. HEENT: Atraumatic, normocephalic, EOMI, anicteric sclera B; pink conjunctiva; PERRLA, normal oropharynx, moist oral and nasal mucosa. Tympanic membrane , nose , throat clear. Neck: Trachea midline. Supple, full range of motion, no JVD, bruit , hepatojugular reflex , lymphadenopathy or masses, or other lesions Cardiac: Regular rhythm, regular rate no murmurs, rubs, or gallops. Normal S1 and S2, no S3 noticed. PMI is normal. Respiratory: Equal breath sounds bilaterally, no tachypnea; lungs clear to auscultation bilaterally, no wheezing ,rub or rales, or crackles. Chest wall is symmetric and without deformity. No signs of trauma. Chest wall is nontender. No signs of respiratory distress. Resonance is normal upon percussion bilaterally. Gastrointestinal: Abdomen symmetric, non-distended, soft, non-tender, normal bowel sounds x4 quadrant, normoactive, no hepatosplenomegaly , no masses , no bruit, no flank pain bilaterally. No voluntary guarding, rebound, or rigidity. No tenderness to percussion. No pulsatile masses. Equal femoral pulses. No Doherty's sign or McBurney point tenderness. Back; no CVA tenderness bilaterally, no deformities. Neck and back are without deformity as well. No tenderness noted on palpation of the spinous processes. Spinous processes are midline. Cervical, thoracic, and lumbar paraspinal muscles are not tender and are without spasm. Musculoskeletal: Extremities, normal range of motion, non-tender, muscle strength 5/5 x 4. Negative Homans signs bilaterally on lower extremity. Distal pulses full symmetrical, no clubbing, cyanosis , edema. Neurological: Speech is clear, alert, and oriented x 4. No motor or sensory deficit, deep tendon reflexes normal, cerebellar intact. Cranial nerves II-XII intact. Psych: Alert and or appropriate, normal affect. Vascular: Good distal pulses, which are equal x4; capillary refill less than 2 seconds. Lymphatic, no lymphadenopathy. Result Diagram: 07/28/24 0448 07/28/24 0448 Coagulation Studies Laboratory Tests Test 07/27/24 20:28 Prothrombin Time 10.9 SECONDS (9.0-12.0) INR International Normalized Ratio 1.1 INR Activated Partial Thromboplast Time 26 SECONDS (22-32) Coagulation Comments Problem\Assessment\Plan Assessment: A 69-year-old female with past medical history of HTN, HLD presented to the ED with symptoms of numbness in bilateral upper extremities, confusion, and difficulty in vision 1/2 side. Patient is admitted for the evaluation management of TIA. Plan: Basal artery aneurysm , neurosurgeon, Dr. Posada evaluation pending Right-sided mastoiditis, on IV Rocephin TIA CVA, rule out NIHSS: 0 Underlying migraine with aura CT head: No acute territorial infarct, intracranial hemorrhage, or mass effect. CTA head and neck: 7 mm basilar tip aneurysm. 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 A1c: 6, U tox: Negative Follow up with MRI brain, echo, lipid panel Tele neurology recommended: Permissive hypertension for 48 hours with SBP < 180/< 120, aspirin and Plavix for 21 days(End date: 08/17/2024) NPO until swallow eval PT/OT eval Neuro checks Continue to monitor telemetry Asymptomatic bacteriuria Urinalysis positive for leukocyte esterase Follow up with urine culture More started on antibiotics as the patient is not symptomatic HTN Allow for permissive hypertension for 48 hours HLD Started on atorvastatin 40 mg once day Follow up with lipid panel COPD not in acute exacerbation DuoNeb p.r.n. q.4h Sepsis Screening Reassessment Date: Jul 28, 2024 Date of Service: Jul 28, 2024 Billing Provider: DANIELLE SUH MD Common Visit Codes: 67022-[id number] INP/OBS CARE(HIGH) DANIELLE SUH MD Jul 28, 2024 19:57
[2024-07-28] MEDS: budesonide 0.5mg/2ml UD nebule IH SCH (20:43)
[2024-07-28] MEDS: albuterol 2.5 MG/3 ML nebule NEB SCH (20:45)
[2024-07-29] VITALS (7 sets, daily range): BP systolic 115–167; BP diastolic 61–111; PULSE 67–83; RESP 14–22; TEMP 97.8–98.5; O2SAT 74–99
[2024-07-29] MEDS: HYDROcodone/acetaminophen 5mg/325mg tablet PO PRN (02:44)
[2024-07-29 04:58] LABS: BASOPHILS # (AUTO) 0.2 X10'3 (0-0.2); BASOPHILS % (AUTO) 4.5 % (0-1); EOSINOPHILS # (AUTO) 0.2 X10'3 (0-0.9); EOSINOPHILS % (AUTO) 4.8 % (0-6); HEMATOCRIT 41.8 % (35.0-45.0); HEMOGLOBIN 13.3 g/dl (12.0-16.0); LYMPHOCYTES # (AUTO) 1.3 X10'3 (1.1-4.8); LYMPHOCYTES % (AUTO) 28.4 % (21-51); MEAN CORPUSCULAR HEMOGLOBIN 28.6 PG (27.0-31.0); MEAN CORPUSCULAR HGB CONC 31.9 g/dL (33.0-36.5); MEAN CORPUSCULAR VOLUME 89.7 FL (78-98); MEAN PLATELET VOLUME 7.4 FL (7.4-10.4); MONOCYTES # (AUTO) 0.5 X10'3 (0-0.9); MONOCYTES % (AUTO) 10.9 % (2-12); NEUTROPHILS # (AUTO) 2.3 X10'3 (1.8-7.7); NEUTROPHILS % (AUTO) 51.4 % (42-75); PLATELET COUNT 253 X10'3 (140-440); RED BLOOD COUNT 4.66 X10'6 (4.20-5.60); RED CELL DISTRIBUTION WIDTH 20.3 % (11.5-14.5); WHITE BLOOD COUNT 4.6 X10'3 (4.5-11.0)
[2024-07-29 05:22] LABS: ANION GAP 6 (8-16); BLOOD UREA NITROGEN 6 MG/DL (7-18); BUN/CREATININE RATIO 18.2 (10.0-20.0); CALCIUM 8.6 MG/DL (8.5-10.1); CHLORIDE 103 MMOL/L (99-107); CREATININE 0.33 MG/DL (0.40-0.90); GLUCOSE 106 MG/DL (70-104); MAGNESIUM 1.4 MG/DL (1.5-2.4); POTASSIUM 3.9 MMOL/L (3.5-5.1); SODIUM 141 MMOL/L (135-145); TOTAL CARBON DIOXIDE 32.1 MMOL/L (24-32); eCRCL 143 ML/MIN; eGFR > 90 ML/MIN
[2024-07-29] MEDS: atorvastatin 20mg tablet PO SCH (08:00)
[2024-07-29] MEDS: montelukast 10mg tablet PO SCH (08:51)
[2024-07-29] MEDS: multivitamins, therapeutics tablet PO SCH (08:51)
[2024-07-29] MEDS: pantoprazole 40mg Tablet.DR PO SCH (08:57)
[2024-07-29] MEDS: psyllium seed 5.8 gm packet (sugar-free) PO SCH (09:01)
[2024-07-29] MEDS: CefTRIAXone/D5W-Rocephin 1gm 50 ML IV SCH (09:05)
[2024-07-29] MEDS: magnesium Cl slow-release 64mg tablet PO PRN (10:45)
[2024-07-29] MEDS: polyethylene glycol 3350 17gm powd pack PO SCH (11:21)
[2024-07-29] MEDS ORDERED: CLOP-32 PO (14:19)
[2024-07-29] MEDS ORDERED: HYDR-3965 PO (14:19)
[2024-07-29] MEDS ORDERED: AMOX-580 PO (14:19)
--- NOTE | 2024-07-29 18:52 | CARDIOLOGY REPORT ---
APPROVED REPORT EXAM: Comprehensive 2D, Doppler, and color-flow Echocardiogram. Patient Location: 4[address] Heart Rate: 70's bpm Rhythm: SINUS Indications CVA/TIA NO CONTRAST ORDERED HYPERTENSION 3/6 HOLOSYSTOLIC MURMUR Project Technician: MD Dylan Previous echo: 06-11-24 BVC EF 60%, modMR, mTR, LAE, MARIBELL, RVE 2D Dimensions RVDd 3.6 cm IVSd 1.1 (0.7-1.1cm) LVDd 4.8 cm PWd 1.3 (0.7-1.1cm) IVSs 1.2 (0.8-1.2cm) LVDs 3.3 (2.5-4.0cm) PWs 1.9 (0.8-1.2cm) LVOT Diameter 1.94 (1.8-2.4cm) LVEF(%) 60.6 (>50%) Ao Asc Diam.3.21 cm IVC 19.24 mmFS (%) 32.4 % SV 65.7 ml CO 4.8 L/min M-Mode Dimensions Left Atrium(MM) 4.12 (2.5-4.0cm) Aortic Root 3.23 (2.2-3.7cm) Aortic Cusp Exc 1.87 (1.5-2.0cm) MV EPSS 0.6 (<0.5cm) Aortic Valve AoV Peak Jose Miguel. 188.6 cm/s AoV VTI 32.6 cm AO Peak GR. 10.0 mmHg AO Mean GR. 6 mmHg LVOT VTI 29.50 cm LVOT Peak Jose Miguel. 130.6 cm/s ALEKSANDRA(VTI)/BSA 2.67 cm2/m2 ALEKSANDRA (VTI) 2.67 cm2 Mitral Valve MV E Velocity 91.7 cm/s MV Peak Gr. 6 mmHg MV DECEL TIME 220 ms MV A Velocity 105.6 cm/s MV PHT 60 ms E/A Ratio 0.9 MVA (PHT) 3.67 cm2 MV SEwt485.1 cm/s TDI Lateral E' P. V8.71 cm/s E/Lateral E' 10.5 Tricuspid Valve TR P. Velocity 297 cm/s RAP ESTIMATE 10 mmHg TR Peak Gr. 35 mmHg RVSP 54 mmHg Pulmonary Vein S1 Velocity 47.9 cm/s D2 Velocity 54.6 cm/s PVa Ppenppxl40.1 cm/s PVa [id number] msec LEFT VENTRICLE Normal LV size and wall thickness. Overall systolic function is normal. LVEF is 65%. RIGHT VENTRICLE RV is moderately dilated in size with normal function. RVSP is estimated at 54 mmHg. ATRIA Left atrium is mildly dilated. AORTIC VALVE Trileaflet AV appears mildly sclerotic without stenosis. Trace insufficiency. MITRAL VALVE Mild MV annular calcification without stenosis. Moderate regurgitation. TRICUSPID VALVE TV appears structurally normal with trace regurgitation. PULMONIC VALVE Normal PV without stenosis, no insufficiency. GREAT VESSELS The aortic root is normal in size. The ascending aorta is normal in size. PERICARDIUM Normal pericardium. No effusion. Other Information Study Quality: Adequate Conclusion Normal LV size and wall thickness. Overall systolic function is normal. LVEF is 65%. RV is moderately dilated in size with normal function. RVSP is estimated at 54 mmHg. Left atrium is mildly dilated. Trileaflet AV appears mildly sclerotic without stenosis. Trace insufficiency. Mild MV annular calcification without stenosis. Moderate regurgitation. TV appears structurally normal with trace regurgitation. Normal pericardium. No effusion.
--- NOTE | 2024-07-29 19:24 | DISCHARGE SUMMARY ---
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 Asymptomatic bacteriuria Right-sided mastoiditis Hypertension uncontrolled Dyslipidemia COPD chronic Heavy tobacco abuse Hospital Course DATE OF ADMISSION: July 27 2024 DATE OF DISCHARGE: July 29/2025 Discharge Diagnosis\Comment: TIA, secondary to uncontrolled hypertension Migraine headaches 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 this morning. Patient usually has migraine with aura but this time she had different kind of a sensation with a rainbow kind of aura and loss of vision on 1/2 side unable to say if left to right. Patient also had difficulty understanding the questions that her daughter was asking, unable to answer complete sentences associated with numbness in her bilateral upper extremities. Patient has had these symptoms for about 1-1/2 hour. Patient also describes frontal headache with a s everity of 7/10 that went away with coffee. Patient denies weakness of her upper or lower extremities or nausea or vomitings. To admission patient was extensively evaluated and treated, patient elected to be discharged now and follow-up with neurosurgeon, Dr. Posada, which we establish an appointment with his office. She is feeling fine today no new complaint, she will be discharged in stable condition medication reconciled, recommended to return to emergency department if condition worsens, today on physical exam, Vital signs, stable ,afebrile. Pulse Oximetry reflects adequate oxygenation. General: well developed, well nourished. Awake , alert, and oriented x4, resting comfortably in the bed, in no acute distress . Skin: Warm, dry, no pallor, no rash or petechiae. HEENT: Atraumatic, normocephalic, EOMI, anicteric sclera B; pink conjunctiva; PERRLA, normal oropharynx, moist oral and nasal mucosa. Tympanic membrane , nose , throat clear. Neck: Trachea midline. Supple, full range of motion, no JVD, bruit , hepatojugular reflex , lymphadenopathy or masses, or other lesions Cardiac: Regular rhythm, regular rate no murmurs, rubs, or gallops. Normal S1 and S2, no S3 noticed. PMI is normal. Respiratory: Equal breath sounds bilaterally, no tachypnea; lungs clear to auscultation bilaterally, no wheezing ,rub or rales, or crackles. Chest wall is symmetric and without deformity. No signs of trauma. Chest wall is nontender. No signs of respiratory distress. Resonance is normal upon percussion bila terally. Gastrointestinal: Abdomen symmetric, non-distended, soft, non-tender, normal bowel sounds x4 quadrant, normoactive, no hepatosplenomegaly , no masses , no bruit, no flank pain bilaterally. No voluntary guarding, rebound, or rigidity. No tenderness to percussion. No pulsatile masses. Equal femoral pulses. No Doherty's sign or McBurney point tenderness. Back; no CVA tenderness bilaterally, no deformities. Neck and back are without deformity as well. No tenderness noted on palpation of the spinous processes. Spinous processes are midline. Cervical, thoracic, and lumbar paraspinal muscles are not tender and are without spasm. Musculoskeletal: Extremities, normal range of motion, non-tender, muscle strength 5/5 x 4. Negative Homans signs bilaterally on lower extremity. Distal pulses full symmetrical, no clubbing, cyanosis , edema. Neurological: Speech is clear, alert, and oriented x 4. No motor or sensory deficit, deep tendon reflexes normal, cerebellar intact. Cranial nerves II-XII intact. Psych: Alert and or appropriate, normal affect. Vascular: Good distal pulses, which are equal x4; capillary refill less than 2 seconds. Lymphatic, no lymphadenopathy. *Problems/Diagnosis: (1) TIA (transient ischemic attack) Status: Acute Total Time Spent on D/C: > 30 Minutes Date of Service: Jul 29, 2024 Billing Provider: DANIELLE SUH MD Common Visit Codes: 83720-TXS/OBS DISCH DAY >30min DANIELLE SUH MD Jul 29, 2024 19:24
[2024-07-30] MEDS ORDERED: polyethylene glycol 3350 17gm powd pack PO SCH (08:00)
[2024-07-30] MEDS ORDERED: SPIR25TA5 PO (20:03)
[2024-08-03] MEDS ORDERED: CefTRIAXone/D5W-Rocephin 1gm 50 ML IV SCH (22:50)
== END 2024-07-29 15:20 | disposition home or self-care (01) | DRG 69 ==
LOC: ER 20:12 → ED HOLD 22:19 → EDBEDREQ 22:45 → ORTHO 4S 07-28 00:08
PROVIDERS: ADMIT Internal Medicine Critical Care Medicine; ATTEND Family Medicine
PROC: B3251ZZ Computerized Tomography (CT Scan) of Bilateral Common Carotid Arteries using Low Osmolar Contrast (ICD-10-PCS; principal; 2024-07-27)
PROC: B32G1ZZ Computerized Tomography (CT Scan) of Bilateral Vertebral Arteries using Low Osmolar Contrast (ICD-10-PCS; 2024-07-27)
PROC: B32R1ZZ Computerized Tomography (CT Scan) of Intracranial Arteries using Low Osmolar Contrast (ICD-10-PCS; 2024-07-27)
PROC: B3281ZZ Computerized Tomography (CT Scan) of Bilateral Internal Carotid Arteries using Low Osmolar Contrast (ICD-10-PCS; 2024-07-27)
DX: G45.9 Transient cerebral ischemic attack, unspecified (principal); I10 Essential (primary) hypertension; G43.109 Migraine with aura, not intractable, without status migrainosus; R82.71 Bacteriuria; J44.9 Chronic obstructive pulmonary disease, unspecified; I73.9 Peripheral vascular disease, unspecified; I34.0 Nonrheumatic mitral (valve) insufficiency; H70.91 Unspecified mastoiditis, right ear; E78.5 Hyperlipidemia, unspecified; Z79.82 Long term (current) use of aspirin; Z79.899 Other long term (current) drug therapy; Z72.0 Tobacco use
CPT/HCPCS: 36415; 70450; 70496; 70498; 70551; 71045; 80048; 80053; 80061; 80305; 81001; 82948; 83036; 83605; 83735; 85008; 85025; 85610; 85730; 87040; 87081; 87088; 92508; 92616; 93005; 93306; 94640; 94760; 97116; 97162; 99285; A4615; G0378; J0696; J2270; J7030; Q9967